=== PATIENT | female | born 1950 | race Caucasian/White ===

== ENCOUNTER 2020-01-18 15:26 | Inpatient (IN) | payer OTHER ==
[~2020-01-18] VITALS: Ht 160 cm; Wt 105.0 kg
[~2020-01-18 15:26] MED LIST: ACT15 PO; AMLODIPINE PO; ASPIRIN PO; BENAZEPRIL/HCTZ; GABAPENTIN PO; HUMULIN R100 U/1 M1 SC; LORATADINE PO; METOPROLOL TART25 M1 PO; NEU300 PO; PIOGLITAZONE PO; RANITIDINE PO; SIMVASTATIN PO
[2020-01-18 15:34] VITALS: Ht 160 cm; Wt 105.0 kg
[2020-01-18 16:32] LABS: BASOPHIL % 0.3 % (0-2); PLATELET COUNT 262 x10^3mcL (130-400)
[2020-01-18 17:12] LABS: BILIRUBIN TOTAL 0.2 mg/dL (0.20-1.00); CALCIUM 6.5 mg/dL (8.5-10.1); CARBON DIOXIDE 18.5 mmol/L (21-32); POTASSIUM SERUM 4.7 mmol/L (3.5-5.1); TOTAL PROTEIN, SERUM 7.2 g/dL (6.4-8.2)
[2020-01-18 17:15] LABS: ALBUMIN 3.2 g/dL (3.4-5.0); CREATININE SERUM 7.2 mg/dL (0.6-1.0)
[2020-01-18 18:03] LABS: MAGNESIUM 1.8 mg/dL (1.8-2.4); PHOSPHOROUS 7.6 mg/dL (2.5-4.9)
[2020-01-18 18:17] VITALS: BP 159/65
[2020-01-18 18:21] LABS: IRON 58 ug/dL (50-170); TOTAL IRON BINDING CAPACITY 267 ug/dL (250-450)
[2020-01-18 19:36] VITALS: BP 184/74
[2020-01-18 22:19] VITALS: BP 136/64
[2020-01-18 22:29] VITALS: BP 178/77
[2020-01-18 23:11] VITALS: BP 166/62
[2020-01-18 23:50] LABS: microscopic required? YES; urine erythrocyte 1+ (NEGATIVE)
[2020-01-19 00:04] LABS: AMPHETAMINE QUAL UR NONE DETECTED (See below)
[2020-01-19 00:30] VITALS: BP 155/58
[2020-01-19 06:00] VITALS: BP 150/60
[2020-01-19 06:50] LABS: BASOPHIL % 0.3 % (0-2); PLATELET COUNT 224 x10^3mcL (130-400)
[2020-01-19 07:06] LABS: RED CELL DISTRIBUTION WIDTH 15.2 % (11.5-14.5)
[2020-01-19 07:26] LABS: CALCIUM 6.7 mg/dL (8.5-10.1); CARBON DIOXIDE 18.3 mmol/L (21-32); MAGNESIUM 1.7 mg/dL (1.8-2.4); PHOSPHOROUS 7.5 mg/dL (2.5-4.9); POTASSIUM SERUM 4.9 mmol/L (3.5-5.1)
[2020-01-19 07:42] LABS: CREATININE SERUM 7.1 mg/dL (0.6-1.0)
[2020-01-19 08:18] VITALS: BP 160/68
[2020-01-19 12:42] VITALS: BP 152/61
[2020-01-19 15:41] VITALS: BP 171/72
[2020-01-19] MEDS ORDERED: AMLODIPINE BESY10 M2 PO (18:48)
[2020-01-19] MEDS ORDERED: ROCALTROL0.25 MCG PO (18:49)
[2020-01-19 20:35] VITALS: BP 172/78
[2020-01-20 00:46] VITALS: BP 130/54
[2020-01-20 05:09] VITALS: BP 146/60
[2020-01-20 06:29] LABS: BASOPHIL % 0.1 % (0-2); PLATELET COUNT 231 x10^3mcL (130-400)
[2020-01-20 06:48] LABS: RED CELL DISTRIBUTION WIDTH 14.9 % (11.5-14.5)
[2020-01-20 07:26] LABS: CALCIUM 7.2 mg/dL (8.5-10.1); CARBON DIOXIDE 18.4 mmol/L (21-32); POTASSIUM SERUM 4.7 mmol/L (3.5-5.1)
[2020-01-20 07:29] LABS: MAGNESIUM 1.7 mg/dL (1.8-2.4); PHOSPHOROUS 6.4 mg/dL (2.5-4.9)
[2020-01-20 07:37] LABS: CREATININE SERUM 7.5 mg/dL (0.6-1.0)
[2020-01-20 08:17] VITALS: BP 161/63
[2020-01-20 12:46] VITALS: BP 149/62
[2020-01-20 16:15] VITALS: BP 144/64
[2020-01-20 21:50] VITALS: BP 149/57
[2020-01-21 06:06] VITALS: BP 153/70
[2020-01-21 06:44] LABS: BASOPHIL % 0.2 % (0-2); PLATELET COUNT 225 x10^3mcL (130-400)
[2020-01-21 06:47] LABS: RED CELL DISTRIBUTION WIDTH 15.2 % (11.5-14.5)
[2020-01-21 06:59] LABS: CARBON DIOXIDE 26.7 mmol/L (21-32); MAGNESIUM 1.5 mg/dL (1.8-2.4); PHOSPHOROUS 4.3 mg/dL (2.5-4.9); POTASSIUM SERUM 3.8 mmol/L (3.5-5.1)
[2020-01-21 07:07] LABS: CREATININE SERUM 4.8 mg/dL (0.6-1.0)
[2020-01-21 08:21] VITALS: BP 163/64
[2020-01-21 10:28] VITALS: BP 163/64
[2020-01-21 11:51] VITALS: BP 147/52
[2020-01-21 16:30] VITALS: BP 131/65
[2020-01-21 20:00] VITALS: BP 125/58
[2020-01-22 05:39] VITALS: BP 163/61
[2020-01-22 06:27] LABS: BASOPHIL % 0.5 % (0-2); PLATELET COUNT 262 x10^3mcL (130-400)
[2020-01-22 06:41] LABS: CALCIUM 7.3 mg/dL (8.5-10.1); CARBON DIOXIDE 33.5 mmol/L (21-32); CREATININE SERUM 3.7 mg/dL (0.6-1.0); MAGNESIUM 1.7 mg/dL (1.8-2.4); PHOSPHOROUS 3.4 mg/dL (2.5-4.9); POTASSIUM SERUM 3.5 mmol/L (3.5-5.1)
[2020-01-22 07:04] LABS: RED CELL DISTRIBUTION WIDTH 15.2 % (11.5-14.5)
[2020-01-22 08:07] VITALS: BP 139/56
[2020-01-22] MEDS ORDERED: LIPI10 PO (11:37)
[2020-01-22] MEDS ORDERED: ECO81 PO (11:38)
[2020-01-22] MEDS ORDERED: PHOS PO (11:39)
[2020-01-22] MEDS ORDERED: PRE20 PO (11:40)
[2020-01-22] MEDS ORDERED: NEP PO (11:40)
[2020-01-22] MEDS ORDERED: LEVAQUIN500 M1 PO (11:41)
[2020-01-22 13:09] VITALS: BP 156/67
[2020-01-22 13:28] VITALS: BP 147/59
[2020-01-22 15:48] VITALS: BP 147/59
== END 2020-01-22 17:27 | disposition home or self-care (01) | DRG 682 ==
LOC: ED 15:26 → MU 17:30 → DU 17:30 → MU 01-19 14:45 → DU 01-20 06:06 → MU 01-20 10:33
PROVIDERS: Emergency Medicine; Internal Medicine; Surgery; ADMIT Family Medicine
PROC: 5A1D70Z Performance of Urinary Filtration, Intermittent, Less than 6 Hours Per Day (ICD-10-PCS; 2020-01-19)
PROC: 5A1D70Z Performance of Urinary Filtration, Intermittent, Less than 6 Hours Per Day (ICD-10-PCS; 2020-01-20)
PROC: 05HM33Z Insertion of Infusion Device into Right Internal Jugular Vein, Percutaneous Approach (ICD-10-PCS; principal; 2020-01-20 10:00)
PROC: 5A1D70Z Performance of Urinary Filtration, Intermittent, Less than 6 Hours Per Day (ICD-10-PCS; 2020-01-21)
DX: I12.0 Hypertensive chronic kidney disease with stage 5 chronic kidney disease or end stage renal disease (principal); N18.6 End stage renal disease; J44.1 Chronic obstructive pulmonary disease with (acute) exacerbation; E87.2 Acidosis; J90 Pleural effusion, not elsewhere classified; J98.11 Atelectasis; Z68.41 Body mass index [BMI] 40.0-44.9, adult; E11.22 Type 2 diabetes mellitus with diabetic chronic kidney disease; E11.21 Type 2 diabetes mellitus with diabetic nephropathy; G47.33 Obstructive sleep apnea (adult) (pediatric); E83.51 Hypocalcemia; E83.39 Other disorders of phosphorus metabolism; E83.42 Hypomagnesemia; E66.01 Morbid (severe) obesity due to excess calories; D63.1 Anemia in chronic kidney disease; F17.210 Nicotine dependence, cigarettes, uncomplicated; Z79.82 Long term (current) use of aspirin; Z79.84 Long term (current) use of oral hypoglycemic drugs; Z90.49 Acquired absence of other specified parts of digestive tract
CPT/HCPCS: 82962; 83880; 90658; 90732; 97112-GP; 97116-GP; 97530-GP; A4301; G0378; J0360; J0690; J0885-EC; J1644; J1815; J1940; J1956; J2001; J2250; J2405; J3010; J3475; J3490; J7030; J7050; J7120; J7512; Q0092